=== PATIENT | female | born 1945 | race Caucasian/White ===

== ENCOUNTER 2017-07-07 12:18 | Emergency (ER) | payer OTHER ==
[~2017-07-07] VITALS: Ht 160 cm; Wt 93.9 kg
[~2017-07-07 12:18] MED LIST: AMARYL4 MG PO; AMIODARONE HCL200 MG PO; ASPIR-TRIN325 M1 PO; CHLORTHALIDONE25 MG PO; DYAZIDE, MA1 CAPSULE PO; GABAPENTIN300 MG PO; HYDROCHLOROTHIA25 MG PO; IRON325 M1 PO; LEVOTHYROXINE137 MCG PO; LEVOTHYROXINE175 MCG PO; LOSARTAN POTAS100 MG PO; METFORMIN HCL500 MG PO; NEURONTIN300 MG PO; PRADAXA150 MG PO; PRILOSEC40 MG PO; SERTRALINE HCL50 MG PO; SOTALOL80 MG PO; SYNTHROID150 MCG PO; TRADJENTA5 MG PO; VITAMIN D250000 UNIT PO; ZEBETA10 MG PO
[2017-07-07 13:17] LABS: MCH 26.7 PG (29.0-34.0); MCHC 32.9 G/DL (30.0-36.0); MCV 81.1 FL (83-99); MEAN PLAT.VOLUME 11.2 uM^3 (9.5-12.4); PLATELET COUNT 110 K/uL (156-360); RBC DIS.WIDTH-CV 14.6 % (11.8-14.6); RBC DIS.WIDTH-SD 42.5 % (39-53); RED BLOOD COUNT 4.19 M/uL (3.80-5.20); WHITE BLOOD COUNT 8.3 K/uL (4.1-10.2)
[2017-07-07 13:29] LABS: CHLORIDE 104 mEq/L (99-109); POTASSIUM 3.9 mEq/L (3.7-5.4); SODIUM 141 mEq/L (136-147)
[2017-07-07 13:30] LABS: GLUCOSE 161 mg/dL (70-99)
[2017-07-07 13:32] LABS: ANION GAP 14 MEQ/L (2-14)
[2017-07-07 13:34] LABS: GFR ESTIMATE (CALCULATED) 52 mL/min/
[2017-07-07 13:35] LABS: UREA NITROGEN (BUN) 25 mg/dL (9-23)
[2017-07-07 14:51] VITALS: BP 158/95
== END 2017-07-07 14:52 | disposition home or self-care (01) ==
LOC: EME 12:18
DX: R50.9 Fever, unspecified (principal); R05 Cough; K22.70 Barrett's esophagus without dysplasia; E11.9 Type 2 diabetes mellitus without complications; I10 Essential (primary) hypertension; Z85.3 Personal history of malignant neoplasm of breast; Z85.850 Personal history of malignant neoplasm of thyroid; Z79.84 Long term (current) use of oral hypoglycemic drugs
CPT/HCPCS: 71020; 80048; 85027; 99281; 99284